=== PATIENT | female | born 1965 | race African-American/Black ===

== ENCOUNTER 2020-01-09 06:03 | Outpatient (CLI) | payer BC, OTHER ==
[2020-01-09 17:58] LABS: SARS-CoV-2 MS2 Positive; SARS-CoV-2 N Gene Negative; SARS-CoV-2 S Gene Negative; SARS-CoV-2 by NAA Not Detected (NotDetected); SARS-CoV-2 orf1ab Negative
== END 2020-01-09 06:04 | disposition home or self-care (01) ==
LOC: LABBT 06:03
PROVIDERS: ATTEND Ophthalmology Retina Specialist
DX: H43.12 Vitreous hemorrhage, left eye (principal); Z20.828 Contact with and (suspected) exposure to other viral communicable diseases
CPT/HCPCS: 87635; U0003

== ENCOUNTER 2020-01-12 06:45 | Day surgery (SDC) | payer BC ==
[2020-01-10 11:36] VITALS: BMI 29.8
[~2020-01-12 06:45] MED LIST: EPINEPHrine 0.3 MG in Ophthalmic Irrigation Solution 500 ML IRR SCH; Fentanyl 100 MCG/2 ML VIAL ONE; Midazolam HCl 2 mg/2 ml Vial ONE
[2020-01-12] MEDS ORDERED: Phenylephrine 2.5% Ophth Soln 5 ML BOT ONE (07:01)
[2020-01-12] MEDS ORDERED: Cyclopentolate 1% Opth Drop 2 ML BOT ONE (07:01)
[2020-01-12] MEDS ORDERED: PROPOFOL 200 MG/20 ML VIAL ONE (09:43)
[2020-01-12] MEDS ORDERED: Bupivacaine PF 0.75% SDV 10 ML ONE (09:43)
[2020-01-12] MEDS ORDERED: Lidocaine 4% PF 5 ML AMP ONE (09:43)
[2020-01-12] MEDS ORDERED: Triamcinolone 40 MG/ML VIAL ONE (09:43)
[2020-01-12] MEDS ORDERED: Maxitrol 0.1% Opth Oint 3.5 GM TUBE ONE (09:43)
[2020-01-12] MEDS ORDERED: Lidocaine 1% PF 5 ML VIAL ONE (09:43)
[2020-01-12] MEDS ORDERED: CEFAZOLIN 1 GM VIAL ONE (09:43)
--- NOTE | 2020-01-13 14:20 | OP ---
DATE OF PROCEDURE: 01/12/2020 PREOPERATIVE DIAGNOSIS: Tractional retinal detachment, left eye. POSTOPERATIVE DIAGNOSIS: Tractional retinal detachment, left eye. PROCEDURES PERFORMED: Pars plana vitrectomy and retinal detachment repair, left eye. ANESTHESIA: Local with monitored anesthesia care. PROCEDURE IN DETAIL: The patient was identified in the preoperative holding area. Appropriate informed consent for the planned surgical procedure on the left eye had been obtained. The patient was transported to the operative suite. Appropriate cardiopulmonary monitoring was established. Local anesthesia was obtained using retrobulbar modified Van Lint lid block using 50:50 mixture of 4% lidocaine and 0.75% bupivacaine. The patient was prepped and draped in usual sterile manner for ophthalmic surgery. Left eye lid speculum was placed in the left eye. 25-gauge trocar was placed in the conjunctiva and sclera superotemporally, inferotemporally, supranasally. Infusion line was placed inferotemporally. Light pipe and vitreous cutter were inserted into the eye. Core vitrectomy was performed. Vitreous hemorrhage was cleared from the vitreous cavity revealing an inferior temporal tractional retinal detachment. Proliferans on the surface of the retina was dissected away using end-gripping forceps and the vitreous cutter until no residual traction was identified. Panretinal photocoagulation was placed in all non macular areas of the retina. Trocars were removed. Eye was noted to retain pressure well. Retrobulbar Kenalog and subconjunctival Ancef were placed. Antibiotic ointment was placed. Eye was patched and shielded. The patient was taken to postoperative recovery unit in good condition, having suffered no immediate apparent complications. The patient was instructed to keep patch and shield on and followup appointment with Dr. Narvaez. Job ID: [id number]
== END 2020-01-12 10:10 | disposition home or self-care (01) ==
LOC: SDC 06:45
PROVIDERS: ATTEND Ophthalmology Retina Specialist
DX: H33.42 Traction detachment of retina, left eye (principal); H43.12 Vitreous hemorrhage, left eye; E78.5 Hyperlipidemia, unspecified; J45.909 Unspecified asthma, uncomplicated; E11.9 Type 2 diabetes mellitus without complications; E03.9 Hypothyroidism, unspecified; Z85.72 Personal history of non-Hodgkin lymphomas; Z79.84 Long term (current) use of oral hypoglycemic drugs; Z79.899 Other long term (current) drug therapy
CPT/HCPCS: 36416; J0171; J0690; J2001; J2250; J2704; J3010; J3301; J3490